=== PATIENT | female | born 1950 ===

== ENCOUNTER 2025-02-25 08:00 | Outpatient (CLI) | payer OTHER ==
[~2025-02-25] VITALS: Ht 154.9 cm; Wt 90.7 kg
[2025-02-25 09:16] VITALS: BP 136/77
[2025-02-25 09:17] LABS: BASO % 0.3 % (0.1-1.2); EOS # 0.08 (0.04-0.54); EOS % 1.2 % (0.7-7.0); LYMPH # 1.17 (1.18-3.74); LYMPH % 17.6 % (19.3-53.1); MEAN PLATELET VOLUME 8.10 fl (9.4-12.4); MONO # 0.64 (0.24-0.82); MONO % 9.7 % (4.7-12.5); NEUT # 4.69 (1.56-6.13); NEUT % 70.7 % (34.0-71.1); RED CELL DISTRIBUTION WIDTH 14.2 % (11.6-14.4)
[2025-02-25] MEDS ORDERED: COZAAR100 MG PO (09:17)
[2025-02-25] MEDS ORDERED: TALTZ SYRI80 MG/1 ML (09:18)
[2025-02-25] MEDS ORDERED: SYNTHROID112 MCG PO (09:18)
[2025-02-25] MEDS ORDERED: ACTOPLUS MET 11 EAC1 PO (09:19)
[2025-02-25] MEDS ORDERED: RISPERDAL1 MG PO (09:19)
[2025-02-25] MEDS ORDERED: BUSPIRONE HCL5 MG PO (09:19)
[2025-02-25] MEDS ORDERED: CRESTOR40 MG PO (09:19)
[2025-02-25 09:29] LABS: INR 1.04
[2025-02-25 11:07] LABS: ALT/SGPT 34.0 U/L (12-78); AST/SGOT 17.0 U/L (15-37); BILIRUBIN TOTAL 0.46 mg/dL (0.3-1.2); BUN CREA RATIO 16.0 (7.0-25.0); CREATININE SERUM 0.76 mg/dL (0.55-1.02); GFR 74.6; GLOBULINA 2.9 G/DL (2.4-3.5); GLUCOSE FASTING 100.0 mg/dL (65-100); OSMOLALITY SERUM 253.0 MOSM/KG (275-295)
[2025-02-25 14:37] LABS: URINE APPEARANCE Clear; URINE BILIRRUBIN Negative (NEGATIVE); URINE BLOOD Negative; URINE COLOR Yellow; URINE GLUCOSE Negative (NEGATIVE); URINE KETONE Negative (NEGATIVE); URINE LEUKOCYTE Large; URINE NITRATE Negative; URINE PROTEIN Negative (NEGATIVE); URINE UROBILINOGEN 0.2 E.U./dl
[2025-02-25 14:40] LABS: URINE BACTERIA 230.3 uL (0.0-1933); URINE EPITHELIAL CELLS 56.9 uL (0.0-38.8); URINE RBC 3.3 uL (0.0-20.8); URINE WBC 144.8 uL (0.0-23.2)
[2025-02-25 15:38] LABS: TYPE CELLS RENAL TUBULAR; URINE CAST 0.29 uL (0.0-1.40)
== END 2025-02-25 08:01 | disposition home or self-care (01) ==
LOC: RAD 08:00 → EDSTATUS 03-05 07:00 → SURH 03-05 07:00
PROVIDERS: ATTEND Orthopaedic Surgery
DX: M17.11 Unilateral primary osteoarthritis, right knee (principal); M85.661 Other cyst of bone, right lower leg